=== PATIENT | female | born 1990 | race Two or more races ===

== ENCOUNTER 2018-09-18 15:58 | Inpatient (IN) | payer MEDICAID ==
[~2018-09-18] VITALS: Ht 160 cm; Wt 53.0 kg
--- NOTE | 2018-09-18 16:41 | NUR ---
PT PRESENTING TO ER FOR HALLUCINATIONS AND SA. "LAST NIGHT GOT DRUNK AND TOOK A BUNCH OF SLEEPING PILLS TO HURT MYSELF. NOW IM SEEING SHADOWS AND EVEN BUGS CRAWLING ON THE FLOOR THAT ARENT THERE." PT STATES PILLS WERE OTC BUT CANNOT RECALL NAME. A&OX3 UNABLE TO DISTINGUISH TIME. ALL BELONGINGS COLLECTED INTO ONE BAG AND PLACED IN LOCKER. LABS COLLECTED. PT STATES JUST VOIDED 10 MINUTES PRIOR UNABLE TO PROVIDE SAMPLE AT THIS TIME. SITTER IN [place] FOR CONTINUOUS MONITORING. WILL CONTINUE TO MONITOR.
[2018-09-18 16:52] LABS: BASOPHILS # (AUTO) 0.01 x10^3/uL (0-0.1); BASOPHILS % (AUTO) 0 % (0-1); EOSINOPHILS % (AUTO) 0 % (1-7); LYMPHOCYTES # (AUTO) 0.67 x10^3/uL (1-3.4); LYMPHOCYTES % (AUTO) 8 % (22-44); MD NO; MEAN CORPUSCULAR HGB CONC 33.7 g/dL (32.4-35.8); MEAN CORPUSCULAR VOLUME 88.9 fL (80-100); MEAN PLATELET VOLUME 8.5 fL (7.4-10.4); MONOCYTES # (AUTO) 0.22 x10^3/uL (0.2-0.8); MONOCYTES % (AUTO) 3 % (2-9); NEUTROPHILS # (AUTO) 7.53 x10^3/uL (1.8-6.8); NEUTROPHILS % (AUTO) 89 % (42-75); PLATELET COUNT 286 x10^3/uL (130-400); RED BLOOD COUNT 4.63 x10^6/uL (3.82-5.3); RED CELL DISTRIBUTION WIDTH 12.7 % (9.6-15.2)
[2018-09-18 16:57] LABS: ALBUMIN 5.1 g/dL (3.4-5.0); ANION GAP 9 mmol/L (5-15); CALCIUM 8.2 mg/dL (8.5-10.1); CHLORIDE 110 mmol/L (98-107); CREATININE 1.04 mg/dL (0.55-1.02)
--- NOTE | 2018-09-18 17:01 | NUR ---
CALL TO [facility] FOR ASSESSMENT
--- NOTE | 2018-09-18 17:12 | NUR ---
DAVID FROM [facility] RETURNED CALL, WILL BE HERE TO ASSESS PATIENT ETA [id number]
[2018-09-18 17:16] LABS: ACETAMINOPHEN < 2 mcg/mL (10-30); SALICYLATE LEVEL < 1.7 mg/dL (2.8-20.0)
--- NOTE | 2018-09-18 17:23 | NUR ---
REPORT FROM ESTRADA QUINTANILLA RN, PT MOVED TO ROOM 40. SITTER AT DOORWAY.
--- NOTE | 2018-09-18 17:35 | NUR ---
PT GAVE SPECIMEN WHICH APPEARED TO BE WATER. PT QUESTIONED AND ADMITS TO PUTTING WATER IN SPECIMEN CUP. PT BACK TO BR TO TRY FOR UA-UNABLE TO GO-PT GIVEN WATER TO DRINK.
--- NOTE | 2018-09-18 18:21 | NUR ---
PT UP TO BR TO ATTEMPT UA.
--- NOTE | 2018-09-18 18:27 | NUR ---
URINE COLLECTED/WALKED TO LAB.
--- NOTE | 2018-09-18 18:36 | NUR ---
[facility] REP IN TO SPEAK WITH PT.
[2018-09-18 18:40] LABS: HCG UR SG 1.014 (1.003-1.030)
[2018-09-18 18:51] LABS: AMPHETAMINE SCREEN, URINE Negative (Negative); BARBITURATE SCREEN, URINE Negative (Negative); BENZODIAZEPINE SCREEN, URINE Negative (Negative); CANNABINOID SCREEN, URINE Negative (Negative); COCAINE SCREEN, URINE Negative (Negative); METHADONE SCREEN, URINE Negative (Negative); OPIATE SCREEN, URINE Negative (Negative)
--- NOTE | 2018-09-18 19:13 | NUR ---
REPORT TO CONNIE, TRANSFER OF CARE AT THIS TIME.
--- NOTE | 2018-09-18 19:39 | NUR ---
PT RESTING ON GURNEY, ADMIT MD AT PT'S BEDSIDE FOR EVAL, ROOM SECURED, SITTER AT DOORWAY FOR CONTINOUS MONITORING
--- NOTE | 2018-09-18 19:46 | NUR ---
PT DENIES CURRENT SI/HI THOUGHT, STATED LAST NIGHT WAS IA MISTAKE. VSS, DENIES NEEDS AT THIS TIME
--- NOTE | 2018-09-18 20:22 | NUR ---
bin worker attempted to call for report.
--- NOTE | 2018-09-18 20:24 | NUR ---
PT RESTING ON GURNEY, DENIES NEEDS, SITTER AT DOORWAY FOR CONTINOUS MONITORING
[2018-09-18] MEDS ORDERED: IBUPROFEN 600 MG TABLET PO PRN (20:30)
[2018-09-18] MEDS ORDERED: ACETAMINOPHEN 325 MG TABLET PO PRN (20:30)
[2018-09-18] MEDS ORDERED: LORazepam 0.5MG TABLET PO PRN (20:30)
[2018-09-18] MEDS ORDERED: POTASSIUM CHLORIDE 20 MEQ TAB.ER.PRT PO ONE (20:30)
--- NOTE | 2018-09-18 20:43 | NUR ---
REPORT CALLED TO 2N RN, ED. RN REFUSED PT AT THIS TIME UNTIL PT EVALUATED IN ER
[2018-09-18] MEDS ORDERED: POTASSIUM CHLORIDE 20 MEQ TAB.ER.PRT ONE (20:52)
--- NOTE | 2018-09-18 20:54 | NUR ---
PT MEDICATED PER MAR
[2018-09-18 21:06] VITALS: BP 103/71
[2018-09-18 21:30] VITALS: BP 103/71
== END 2018-09-19 00:15 | DRG 918 ==
LOC: ED 16:48 → MERGE 16:48 → EDIP 19:04 → 2N 20:57
PROVIDERS: ADMIT Family Medicine; ATTEND Family Medicine
DX: T42.72XA Poisoning by unspecified antiepileptic and sedative-hypnotic drugs, intentional self-harm, initial encounter (principal); F17.210 Nicotine dependence, cigarettes, uncomplicated; F10.929 Alcohol use, unspecified with intoxication, unspecified; Y90.9 Presence of alcohol in blood, level not specified; E87.6 Hypokalemia; Y92.098 Other place in other non-institutional residence as the place of occurrence of the external cause
CPT/HCPCS: 36415; 80048; 80307; 80329; 81025; 82040; 85025; 99285; G0378; G0480